=== PATIENT | male | born 1985 | race African-American/Black ===

== ENCOUNTER 2019-07-28 11:11 | Emergency (ER) | payer MEDICAID ==
[~2019-07-28] VITALS: Ht 188 cm; Wt 99.1 kg
[2019-07-28 11:16] VITALS: BP 129/80; TEMP 97.1
[2019-07-28 12:09] LABS: COLLECTION METHOD CLEAN CATCH
[2019-07-28 12:15] LABS: PH 5 (5-8); SQUAMOUS EPITHELIAL None Seen /hpf; URINE APPEARANCE Clear; URINE BACTERIA None Seen /hpf; URINE BILIRUBIN Negative (NEGATIVE); URINE BLOOD Negative (NEGATIVE); URINE COLOR Yellow; URINE GLUCOSE Negative (NEGATIVE); URINE KETONE Negative (NEGATIVE); URINE LEUKOCYTE ESTERASE Negative (NEGATIVE); URINE NITRATE Negative (NEGATIVE); URINE PROTEIN(semi-quant) Negative (NEGATIVE); URINE RBC 0-2 /hpf; URINE UROBILINOGEN Negative (NEGATIVE)
[2019-07-28 12:24] LABS: TRICYCLIC ANTIDEPRESS URINE NEGATIVE
[2019-07-28] MEDS ORDERED: LIDODERM 5% PATC1 EA TP (13:21)
[2019-07-28 13:35] VITALS: PULSE 73
== END 2019-07-28 13:30 | disposition home or self-care (01) ==
LOC: COL.ER 11:11
PROVIDERS: Physician Assistant
DX: R55 Syncope and collapse (principal); M54.5 Low back pain; G89.29 Other chronic pain; F12.90 Cannabis use, unspecified, uncomplicated; F32.9 Major depressive disorder, single episode, unspecified; F17.210 Nicotine dependence, cigarettes, uncomplicated
CPT/HCPCS: J1885